=== PATIENT | male | born 1985 | race Caucasian/White ===

== ENCOUNTER 2021-07-27 07:35 | Emergency (ER) | payer OTHER ==
[~2021-07-27] VITALS: Ht 170.2 cm; Wt 82.0 kg
[2021-07-27] MEDS ORDERED: PREDNISONE 20MG TABLET PO ONE (08:15)
[2021-07-27] MEDS ORDERED: DIPHENHYDRAMINE 50MG CAPSULE PO ONE (08:15)
[2021-07-27] MEDS ORDERED: P20 MT (08:46)
[2021-07-27] MEDS ORDERED: PERM60CR4 TP (08:46)
[2021-07-27] MEDS ORDERED: DIPH25CA83 MT (08:46)
[2021-07-27 08:58] VITALS: BP 118/87
== END 2021-07-27 09:00 | disposition home or self-care (01) ==
LOC: ER 07:35
DX: R21 Rash and other nonspecific skin eruption (principal); Z98.890 Other specified postprocedural states; Z79.899 Other long term (current) drug therapy
CPT/HCPCS: 99283; J7512; Q0163